=== PATIENT | female | born 1995 | race Caucasian/White ===

== ENCOUNTER 2018-09-25 00:17 | Emergency (ER) | payer BC, MEDICAID ==
[~2018-09-25] VITALS: Ht 165.1 cm; Wt 52.0 kg
[2018-09-25] MEDS ORDERED: SODIUM CHLORIDE 0.9% 1,000 ML IV ONE (01:17)
[2018-09-25] MEDS ORDERED: ONDANSETRON HCL 4MG/2ML INJ IV STA (01:17)
[2018-09-25] MEDS ORDERED: KETOROLAC 30MG/ML VIAL IV STA (01:17)
[2018-09-25 02:12] LABS: CHLORIDE 106 mEq/L (98-107)
[2018-09-25 02:35] LABS: HEMATOCRIT. 40.8 % (36.0-48.0); HEMOGLOBIN. 13.4 g/dL (12.0-16.0); MEAN CORPUSCULAR HEMOGLOBIN 28.5 pg (28.0-32.0); MEAN PLATELET VOLUME 9.1 fl (7.4-10.4); PLATELET 257 x1000/uL (130-400); RED BLOOD CELL COUNT 4.69 mill/uL (4.2-5.4); RED CELL DISTRIBUTION WIDTH 12.7 % (11.6-14.6)
[2018-09-25 02:53] LABS: PLATELET ESTIMATE NORMAL
[2018-09-25 07:20] LABS: CLARITY URINE CLEAR (CLEAR); COLOR URINE YELLOW (YELLOW); KETONES URINE 3+ (NEGATIVE); LEUKOCYTE ESTERASE URINE 2+ (NEGATIVE); NITRITE URINE NEGATIVE (NEGATIVE); OCCULT BLOOD URINE NEGATIVE (NEGATIVE); PROTEIN URINE NEGATIVE (NEGATIVE); SPECIFIC GRAVITY URINE 1.027 (1.005-1.030)
[2018-09-25 09:39] VITALS: BP 105/53
== END 2018-09-25 09:40 | disposition home or self-care (01) ==
LOC: ER 02:04
DX: N30.00 Acute cystitis without hematuria (principal)
CPT/HCPCS: 36415; 76705; 80053; 81003; 81025; 83605; 83690; 85025; 96361; 96374; 96375; 99284; J1885; J2405; J7030

== ENCOUNTER 2019-03-22 09:18 | Emergency (ER) | payer BC, MEDICAID ==
[~2019-03-22] VITALS: Ht 162.6 cm; Wt 53.0 kg
[2019-03-22] MEDS ORDERED: ONDANSETRON HCL 4MG/2ML INJ IV STA (10:16)
[2019-03-22] MEDS ORDERED: FAMOTIDINE 20MG/2ML VIAL IV STA (10:16)
[2019-03-22] MEDS ORDERED: SODIUM CHLORIDE 0.9% 1,000 ML IV ONE (10:16)
[2019-03-22 10:52] LABS: HEMATOCRIT. 39.1 % (36.0-48.0); HEMOGLOBIN. 12.9 g/dL (12.0-16.0); MEAN CORPUSCULAR VOLUME 87.7 fL (81.0-99.0); MEAN PLATELET VOLUME 8.8 fl (7.4-10.4); PLATELET 266 x1000/uL (130-400); RED BLOOD CELL COUNT 4.46 mill/uL (4.2-5.4); RED CELL DISTRIBUTION WIDTH 13.4 % (11.6-14.6)
[2019-03-22 10:52] LABS: CLARITY URINE CLEAR (CLEAR); COLOR URINE YELLOW (YELLOW); KETONES URINE NEGATIVE (NEGATIVE); LEUKOCYTE ESTERASE URINE 3+ (NEGATIVE); NITRITE URINE NEGATIVE (NEGATIVE); OCCULT BLOOD URINE TRACE (NEGATIVE); PROTEIN URINE NEGATIVE (NEGATIVE); SPECIFIC GRAVITY URINE 1.016 (1.005-1.030)
[2019-03-22 10:59] LABS: CHLORIDE 108 mEq/L (98-107); PROTHROMBIN TIME 10.5 sec (9.6-11.0)
[2019-03-22 11:26] LABS: PLATELET ESTIMATE NORMAL
[2019-03-22 12:12] VITALS: BP 110/60
== END 2019-03-22 12:17 | disposition home or self-care (01) ==
LOC: ER 09:18
DX: N12 Tubulo-interstitial nephritis, not specified as acute or chronic (principal); J06.9 Acute upper respiratory infection, unspecified
CPT/HCPCS: 36415; 80053; 81003; 81025; 83690; 85025; 85610; 87077; 87086; 96374; 96375; 99283; J2405; J3490; J7030

== ENCOUNTER 2021-11-30 14:30 | Emergency (ER) | payer MEDICAID ==
[~2021-11-30] VITALS: Ht 165.1 cm; Wt 59.0 kg
[2021-11-30 15:00] VITALS: BP 118/74
[2021-11-30] MEDS ORDERED: AMOX-424 MT (16:57)
[2021-11-30] MEDS ORDERED: TETANUS, DIPHTHERIA, PERTUSSIS VAC/PF 0.5ML (>10YR OLD) IM ONE (17:00)
== END 2021-11-30 17:24 | disposition home or self-care (01) ==
LOC: ER 14:30
DX: S61.051A Open bite of right thumb without damage to nail, initial encounter (principal); W53.21XA Bitten by squirrel, initial encounter; Y93.89 Activity, other specified; Y92.830 Public park as the place of occurrence of the external cause
CPT/HCPCS: 90471; 90715; 99283